=== PATIENT | female | born 1945 | race African-American/Black ===

== ENCOUNTER → 2016-04-04 | Outpatient (CLI) | payer MEDICARE, OTHER ==
--- NOTE | 2016-04-04 13:21 | RAD ---
DATE: April 04, 2016 EXAM: DIGITAL SCREEN BILAT W/CAD HISTORY: Screening study. COMPARISON: 2013 and 2014 and 2015 This study was interpreted with the benefit of Computerized Aided Detection (CAD). FINDINGS: The breast parenchyma is heterogeneously dense. There are no dominant suspicious masses, suspicious microcalcifications or evidence of architectural distortion. IMPRESSION: There are no mammographic indicators for malignancy. BI-RADS CATEGORY: 1 NEGATIVE RECOMMENDED FOLLOW-UP: 12M 12 MONTH FOLLOW-UP PQRS compliance statement: Patient information was entered into a reminder system with a target due date for the next mammogram. Mammography is a sensitive method for finding small breast cancers, but it does not detect them all and is not a substitute for careful clinical examination. A negative mammogram does not negate a clinically suspicious finding and should not result in delay in biopsying a clinically suspicious abnormality. "Our facility is accredited by the [employer] Mammography [employer]." The patient's breast density may affect the ability of mammography to detect breast cancer. There are 4 categories of breast density, A, B, C and D. Breast density A means that most of the breast tissue is replaced with adipose tissue and therefore is not dense. Breast density B means that the breast tissue is mildly dense and scattered. Breast density C means that the breast tissue is heterogeneously dense. Breast density D means that the breast tissue is very dense. Breast densities especially C and D may decrease the sensitivity of mammography to detect breast cancer. Therefore, the patient may benefit from 3-D breast mammography (3D breast tomography) as a part of their screening mammogram. Insurance may or may not pay for this additional imaging. The patient's breast density based on today's mammogram is category C..
== END | disposition home or self-care (01) ==
LOC: MAMMO 09:08
PROVIDERS: ATTEND Family Medicine
DX: Z12.31 Encounter for screening mammogram for malignant neoplasm of breast (principal)
CPT/HCPCS: G0202; 77067

== ENCOUNTER → 2016-12-09 | Day surgery (SDC) | payer MEDICARE, OTHER ==
[~2016-12-09] MED LIST: GLIM1TAB2 PO; IV RINGERS,LACTATED 1000ML 1,000 ML IV SCH; LIDOCAINE 1% PF 2 ML VIAL. ID PRN; LIDOCAINE 2% PF Vial for OR 5 ML VIAL. ONE; LISI-334 PO; METF-620 PO; MIDAZOLAM HCL/PF 2 MG/2 ML VIAL. IV PRN; PRAV20TA2 PO; PROPOFOL 40 ML IV ONE; fentaNYL PF VIAL 100 MCG/2 ML VIAL IV PRN
[2016-12-09 16:53] VITALS: BP 118/61
== END | disposition home or self-care (01) ==
LOC: SURG 14:17
PROVIDERS: ATTEND Internal Medicine Gastroenterology
DX: Z12.11 Encounter for screening for malignant neoplasm of colon (principal); K64.0 First degree hemorrhoids; E11.9 Type 2 diabetes mellitus without complications; E78.00 Pure hypercholesterolemia, unspecified; Z98.890 Other specified postprocedural states; Z83.3 Family history of diabetes mellitus; Z82.49 Family history of ischemic heart disease and other diseases of the circulatory system
CPT/HCPCS: G0121; J2704; J2001

== ENCOUNTER → 2017-04-06 | Outpatient (CLI) | payer MEDICARE, OTHER | END | disposition home or self-care (01) | LOC: MAMMO 12:02 | DX: Z12.31 Encounter for screening mammogram for malignant neoplasm of breast (principal) | CPT/HCPCS: 77067 ==

== ENCOUNTER → 2018-04-12 | Outpatient (CLI) | payer MEDICARE, OTHER ==
[2016-12-09 16:53] VITALS: BP 118/61
[~2018-04-12] MED LIST changes: -IV RINGERS,LACTATED 1000ML 1,000 ML IV SCH; -LIDOCAINE 1% PF 2 ML VIAL. ID PRN; -LIDOCAINE 2% PF Vial for OR 5 ML VIAL. ONE; -METF-620 PO; +METF10007 PO; -MIDAZOLAM HCL/PF 2 MG/2 ML VIAL. IV PRN; -PROPOFOL 40 ML IV ONE; -fentaNYL PF VIAL 100 MCG/2 ML VIAL IV PRN
--- NOTE | 2018-04-13 07:54 | RAD ---
DATE: 04/12/2018 EXAM: MAMMO MAGNO SCREENING BILATERAL HISTORY: Screening Mammogram COMPARISON: Mammogram 04/06/2017, 04/04/2016, 04/04/2015, 03/31/2014 This study was interpreted with the benefit of Computerized Aided Detection (CAD). The breast parenchyma shows scattered fibroglandular densities. Breast parenchyma level B. FINDINGS: Bilateral digital 2-D and 3-D tomosynthesis CC and MLO views. There is an asymmetry in the left breast, posterior depth only seen on the CC view. No suspicious mass, calcification or architectural distortion in the right breast. IMPRESSION: Left breast asymmetry, posterior depth only on the cc view. Spot compression CC view, full field lateral view, and same-day ultrasound if needed is recommended. BI-RADS CATEGORY: 0 INCOMPLETE: NEEDS ADDITIONAL IMAGING EVALUATION AND/OR PRIOR MAMMOGRAMS FOR COMPARISON. RECOMMENDED FOLLOW-UP: ADD ADDITIONAL IMAGING PQRS compliance statement: Patient information was entered into a reminder system with a target due date for the next mammogram. Mammography is a sensitive method for finding small breast cancers, but it does not detect them all and is not a substitute for careful clinical examination. A negative mammogram does not negate a clinically suspicious finding and should not result in delay in biopsying a clinically suspicious abnormality. "Our facility is accredited by the [employer] Mammography [employer]."
== END | disposition home or self-care (01) ==
LOC: MAMMO 14:43
PROVIDERS: ATTEND Family Medicine
DX: Z12.31 Encounter for screening mammogram for malignant neoplasm of breast (principal)
CPT/HCPCS: 77063; 77067

== ENCOUNTER → 2018-04-27 | Outpatient (CLI) | payer MEDICARE, OTHER ==
[2016-12-09 16:53] VITALS: BP 118/61
--- NOTE | 2018-04-27 10:32 | RAD ---
DATE: 04/27/2018 EXAM: DIGITAL DIAGNOSTIC LT, BREAST LEFT HISTORY: Suspicious screening study COMPARISON: 04/12/2018, 04/06/2017 This study was interpreted with the benefit of Computerized Aided Detection (CAD). Breast Density: SCATTERED The breast parenchyma shows scattered fibroglandular densities. Breast parenchyma level B. FINDINGS: Additional views of the left breast were obtained and correlated with the screening images. A 3.5 mm nodular opacity was seen posteriorly at the 12:00 location in the left breast on the screening exam, best demonstrated on CC tomosynthesis images #30. It persists on today's spot compression view. It may correspond to a tiny opacity seen superiorly in the left breast on today's straight mediolateral view, however, that cannot be stated with certainty. This was not clearly visible on previous mammograms, however, that may have been due to its far posterior position. Left breast ultrasound, 04/12/2018: A targeted ultrasound exam of the superior aspect of the left breast was performed. At the 11:30 location approximately 8 cm from the nipple there is a 3 mm rounded hypoechoic nodule. This probably corresponds to the mammographic finding, but that cannot be stated with certainty. Its margins are generally smooth. There is no definite posterior acoustic enhancement or shadowing. This may be a tiny complicated cyst or fibroadenoma. No other abnormality was seen in this region of the left breast. IMPRESSION: Probably benign small left breast nodule as described above. Mammographic and sonographic surveillance of the left breast beginning in 6 months is suggested. BI-RADS CATEGORY: 3 PROBABLY BENIGN FINDING(S)-SHORT INTERVAL FOLLOW-UP SUGGESTED RECOMMENDED FOLLOW-UP: 6M 6 MONTH FOLLOW-UP PQRS compliance statement: Patient information was entered into a reminder system with a target due date for the next mammogram. Mammography is a sensitive method for finding small breast cancers, but it does not detect them all and is not a substitute for careful clinical examination. A negative mammogram does not negate a clinically suspicious finding and should not result in delay in biopsying a clinically suspicious abnormality. "Our facility is accredited by the [employer] Mammography [employer]."
== END | disposition home or self-care (01) ==
LOC: MAMMO 09:34
PROVIDERS: ATTEND Family Medicine
DX: R92.8 Other abnormal and inconclusive findings on diagnostic imaging of breast (principal)
CPT/HCPCS: 76641; 77065

== ENCOUNTER → 2018-11-10 | Outpatient (CLI) | payer MEDICARE, OTHER ==
[2016-12-09 16:53] VITALS: BP 118/61
--- NOTE | 2018-11-10 17:34 | RAD ---
DATE: 11/10/2018 EXAM: MAMMO MAGNO CORBING LT, BREAST LEFT HISTORY: Abnormal mammogram COMPARISON: 04/27/2018 left unilateral diagnostic mammogram and left breast ultrasound exam, 04/12/2018 screen mammographic exam This study was interpreted with the benefit of Computerized Aided Detection (CAD). Breast Density: HETERO The breast parenchyma is heterogenously dense, which could reduce sensitivity of mammography. Breast parenchyma level C. FINDINGS: Benign calcification is present. No suspicious mass or distortion. Small asymmetry of the posterior aspect of the left CC view medially is unchanged. Limited left breast ultrasound exam was performed. Hypoechoic structure at the 11:30 region 8 cm from the nipple measuring 0.3 cm x 0.3 cm x 0.3 cm is present. No flow within it. This finding is unchanged compared to the prior exam. IMPRESSION: Stable. Follow-up of the time of annual mammography recommended. Ultrasound is recommended at that time as well. BI-RADS CATEGORY: 3 PROBABLY BENIGN FINDING(S)-SHORT INTERVAL FOLLOW-UP SUGGESTED RECOMMENDED FOLLOW-UP: 6M 6 MONTH FOLLOW-UP PQRS compliance statement: Patient information was entered into a reminder system with a target due date in 6 months at the time of annual evaluation for the next mammogram. Mammography is a sensitive method for finding small breast cancers, but it does not detect them all and is not a substitute for careful clinical examination. A negative mammogram does not negate a clinically suspicious finding and should not result in delay in biopsying a clinically suspicious abnormality. "Our facility is accredited by the [employer] Mammography [employer]."
== END | disposition home or self-care (01) ==
LOC: MAMMO 10:20
PROVIDERS: ATTEND Family Medicine
DX: R92.1 Mammographic calcification found on diagnostic imaging of breast (principal)
CPT/HCPCS: 76641; 77065; G0279; 77061

== ENCOUNTER → 2019-04-27 | Outpatient (CLI) | payer MEDICARE, OTHER ==
[2016-12-09 16:53] VITALS: BP 118/61
[~2019-04-27] MED LIST changes: -GLIM1TAB2 PO; +GLIM1TAB7 PO
--- NOTE | 2019-04-27 14:25 | RAD ---
DATE: April 27, 2019 EXAM: DIGITAL DIAGNOSTIC BILATERAL, BREAST LEFT SONOGRAPHY HISTORY: Follow-up of left breast nodule. COMPARISON: April 27, 2018 and November 10, 2018. This study was interpreted with the benefit of Computerized Aided Detection (CAD). 2-D digital mammographic views of both breasts were performed in the CC and MLO projections. 3-D digital tomosynthesis images of both breasts were performed in the CC and MLO projections and reviewed on a computer workstation. FINDINGS: Breast Density: HETERO The breast parenchyma is heterogenously dense, which could reduce sensitivity of mammography. Breast parenchyma level C.. There are no new dominant suspicious masses, suspicious microcalcifications or evidence of architectural distortion. Nodularity of both breasts is stable. LEFT BREAST SONOGRAPHY: High-resolution sonography of the 11:30 position of the left breast 8 cm from the nipple again demonstrates a small round smooth hypoechoic nodule measuring 3 mm in size. There is mild sound through transmission. Thin echogenic capsule is seen and the wall is smooth. No abnormal internal color Doppler flow is seen. This is unchanged from the previous study and most likely presents a small cyst or fibroadenoma or lymph node. IMPRESSION: Stable benign-appearing left breast nodule measuring 3 mm in size. No new abnormality. No mammographic indicators for malignancy. Recommend bilateral mammography and left breast sonography in one year to establish stability over 2 years. BI-RADS CATEGORY: 3 PROBABLE BENIGN-SHORT TERM F/U RECOMMENDED FOLLOW-UP: 12M 12 MONTH FOLLOW-UP PQRS compliance statement: Patient information was entered into a reminder system with a target due date April 28, 2020 for the next mammogram. Mammography is a sensitive method for finding small breast cancers, but it does not detect them all and is not a substitute for careful clinical examination. A negative mammogram does not negate a clinically suspicious finding and should not result in delay in biopsying a clinically suspicious abnormality. "Our facility is accredited by the [employer] Mammography [employer]." The patient's breast density may affect the ability of mammography to detect breast cancer. There are 4 categories of breast density, A, B, C and D. Breast density A means that most of the breast tissue is replaced with adipose tissue and therefore is not dense. Breast density B means that the breast tissue is mildly dense and scattered. Breast density C means that the breast tissue is heterogeneously dense. Breast density D means that the breast tissue is very dense. Breast densities especially C and D may decrease the sensitivity of mammography to detect breast cancer. Therefore, the patient may benefit from 3-D breast mammography (3D breast tomography) as a part of their screening mammogram. Insurance may or may not pay for this additional imaging. The patient's breast density based on today's mammogram is category C.
== END | disposition home or self-care (01) ==
LOC: MAMMO 13:09
PROVIDERS: ATTEND Family Medicine
DX: Z09 Encounter for follow-up examination after completed treatment for conditions other than malignant neoplasm (principal); N63.22 Unspecified lump in the left breast, upper inner quadrant; Z17.1 Estrogen receptor negative status [ER-]; Z85.3 Personal history of malignant neoplasm of breast
CPT/HCPCS: 76641; 77066

== ENCOUNTER → 2020-05-08 | Outpatient (CLI) | payer OTHER, MEDICARE ==
[2016-12-09 16:53] VITALS: BP 118/61
[~2020-05-08] MED LIST changes: -LISI-334 PO; +LISI20TA18 PO
--- NOTE | 2020-05-10 15:40 | RAD ---
Examination: Bilateral digital diagnostic mammogram INDICATION: 74-year-old woman due for bilateral mammographic screening presenting for short-term foll ow-up of a probably benign left breast mass following initial screening recall in 2019. COMPARISON: Bilateral screening mammogram of 04/10/2018 and bilateral diagnostic mammogram of 0 as well as left diagnostic mammograms of 04/27/2018, and 11/10/2018 and limited left breast ultrasoun d examinations of 04/27/2018 and 11/10/2018. TECHNIQUE: Bilateral CC and MLO views were obtained with 2-D and 3-D technique and reviewed with comp uter-aided detection. In addition, a full field left ML view was obtained. FINDINGS: Heterogeneously dense breast parenchyma. Stable scattered benign calcifications in the left breast. No developing mass, suspicious calcification or architectural distortion is apparent in either breast . The nodule recalled from screening in the central posterior left breast has since resolved. On review of the prior breast ultrasound examinations, their imaging appearance showed benign finding s with a 3 mm circumscribed cyst noted at the 11:30 o'clock position 8 cm from the nipple. Given the interval mammographic resolution of the finding recalled from screening and the benign ultrasound fin dings on previous examinations, ultrasound today was deferred in favor return to routine mammographic screening and maintenance of self breast awareness. IMPRESSION: Benign findings on bilateral diagnostic mammogram. No evidence of malignancy. BI-RADS Category 2 Benign findings Recommend return to routine screening, next due in one year. Patient entered into a reminder system with targeted due date for next mammogram. Electronically signed by: Adelia Shook MD (05/10/2020 3:38 PM) [id number]
== END ==
LOC: MAMMO 10:12
PROVIDERS: ATTEND Family Medicine
DX: N60.01 Solitary cyst of right breast (principal); N60.02 Solitary cyst of left breast
CPT/HCPCS: 77066

== ENCOUNTER → 2021-05-09 | Outpatient (CLI) | payer MEDICARE, OTHER ==
[2016-12-09 16:53] VITALS: BP 118/61
--- NOTE | 2021-05-09 14:13 | RAD ---
EXAMINATION: MG 2D BILAT SCREENING CLINICAL HISTORY: Routine screening mammogram TECHNIQUE: Digital craniocaudal and mediolateral oblique views of the bilateral breasts obtained. COMPARISON: 05/08/2020, 04/27/2019, 11/02/2018, 04/12/2018 BREAST COMPOSITION: The breasts are heterogeneously dense, which may obscure small masses. FINDINGS: Small asymmetry superior left breast posterior third approximately 8 cm from the nipple on MLO view w ithout clearly visualized correlated on CC view. No evidence of suspicious mass in the right breast. No evidence of suspicious calcifications or areas of architectural distortion bilaterally. IMPRESSION: Small asymmetry superior left breast on MLO view, recommend further evaluation with spot compression and true lateral views of the left breast as well as possible targeted left breast ultrasound if marito cated. BI-RADS ASSESSMENT: Category 0: Incomplete - Need Additional Imaging Evaluation and/or Prior Mammograms for Comparison RECOMMENDATION: Left breast diagnostic mammogram and possible targeted left breast ultrasound if indicated. PQRS compliance statement - Patient information was entered into a reminder system with a target due date for the next mammogram. "Our facility is accredited by the [employer] Mammography Program." Electronically signed by: Hakeem Perdomo DO (05/09/2021 2:10 PM) [id number]
== END ==
LOC: MAMMO 12:29
PROVIDERS: ATTEND Family Medicine
DX: Z12.31 Encounter for screening mammogram for malignant neoplasm of breast (principal)
CPT/HCPCS: 77067

== ENCOUNTER → 2021-05-22 | Outpatient (CLI) | payer MEDICARE, OTHER ==
[2016-12-09 16:53] VITALS: BP 118/61
--- NOTE | 2021-05-22 14:46 | RAD ---
LEFT DIAGNOSTIC MAMMOGRAPHY History: Abnormal screening mammogram. Comparison: Bilateral mammogram May 09, 2021 and prior years. Technique: Left true lateral and spot compression MLO and ML digital mammogram views were obtained. Findings: Breast Tissue Density B : There are scattered areas of fibroglandular density. The tiny asymmetry of the posterior upper left breast just superior to the nipple line is no longer i dentified on the spot compression views or the true lateral view. There are a few benign calcificatio ns. IMPRESSION: Resolution of asymmetry with additional mammogram views. Recommend routine mammogram screening. BI-RADS category 2: Benign findings. The images were reviewed with computer-aided detection. Patient information is entered into the reminder system with a target due date for the next screening mammogram. Mammography is the most sensitive method for finding small breast cancers, but it does not detect the m all and is not a substitute for careful clinical examination. A negative mammogram does not negate a clinically suspicious finding and should not result in delay in biopsying a clinically suspicious a bnormality. "Our facility is accredited by the [employer] Mammography Program." Electronically signed by: Abelardo Herr MD (05/22/2021 2:44 PM) [email or web address]
== END ==
LOC: US 14:05
PROVIDERS: ATTEND Family Medicine
DX: R92.8 Other abnormal and inconclusive findings on diagnostic imaging of breast (principal)
CPT/HCPCS: 77065